=== PATIENT | male | born 1980 | race Caucasian/White ===

== ENCOUNTER 2018-11-14 12:13 | Day surgery (SDC) | payer MEDICAID ==
[2018-11-10 15:38] LABS: BASOPHILS % (AUTO) 0.4 % (0-1); EOSINOPHILS # (AUTO) 0.1 X10'3 (0-0.9); EOSINOPHILS % (AUTO) 0.6 % (0-6); LYMPHOCYTES # (AUTO) 1.8 X10'3 (1.1-4.8); LYMPHOCYTES % (AUTO) 19.3 % (21-51); MEAN CORPUSCULAR HGB CONC 34.3 g/dL (33.0-36.5); MEAN CORPUSCULAR VOLUME 96.1 FL (78-98); MEAN PLATELET VOLUME 8.3 FL (7.4-10.4); MONOCYTES # (AUTO) 0.7 X10'3 (0-0.9); MONOCYTES % (AUTO) 7.6 % (2-12); NEUTROPHILS # (AUTO) 6.9 X10'3 (1.8-7.7); NEUTROPHILS % (AUTO) 72.1 % (42-75); PRE OP HEMATOCRIT 43.6 % (42.0-52.0); PRE OP HEMOGLOBIN 14.9 g/dL (14.0-17.9); PRE OP PLATELET COUNT 239 X10'3 (140-440); RED BLOOD COUNT 4.53 X10'6 (4.70-6.10)
[2018-11-10 15:58] LABS: ALBUMIN 3.8 G/DL (3.4-5.0); ALBUMIN/GLOBULIN RATIO 0.9 (1.1-1.5); ALKALINE PHOSPHATASE 64 IU/L (46-116); BLOOD UREA NITROGEN 16 MG/DL (7-18); BUN/CREATININE RATIO 14.4 (5.4-32.0); CALCIUM 9.4 MG/DL (8.5-10.1); CHLORIDE 104 MMOL/L (99-107); CREATININE 1.11 MG/DL (0.60-1.10); PRE OP ALT 29 U/L (30-65); PRE OP ANION GAP 6 (8-16); PRE OP AST 20 U/L (10-37); PRE OP BILIRUB, TOTAL 0.3 MG/DL (0.0-1.0); PRE OP GLUCOSE 88 MG/DL (70-104); PRE OP SODIUM 141 MMOL/L (135-145); TOTAL CARBON DIOXIDE 30.9 MMOL/L (24-32); TOTAL PROTEIN 8.1 G/DL (6.4-8.2); eGFR 74 ML/MIN
[~2018-11-14] VITALS: Ht 182.9 cm; Wt 98.7 kg
[~2018-11-14 12:13] MED LIST: BUPIVAcaine/PF 2.5mg/ml (0.25%) 10ml vial ONE; CALC500T11 PO; CYCL-1 PO; IBUP-1986 PO; OXYC-658; VARE1TAB22 PO; cefazolin/dext.iso 2gm/100 ML IV ONE; famotidine 20mg tablet PO ONE; ringers solution, lacted 1,000 ML IV SCH
[2018-11-14 12:20] VITALS: BP 118/67
[2018-11-14] MEDS ORDERED: ringers solution, lacted 1,000 ML IV SCH (13:34)
[2018-11-14] MEDS ORDERED: ondansetron/PF 4mg/2ml inj IV PRN (13:35)
[2018-11-14] MEDS ORDERED: morphine 4 MG/ML inj SYRINge IV PRN ×2 (13:35)
[2018-11-14] MEDS ORDERED: proCHLORperazine 10 MG/2 ml inj IV PRN (13:35)
[2018-11-14] MEDS ORDERED: meperidine/PF 25mg/ml syringe IV PRN ×3 (13:35)
[2018-11-14] MEDS ORDERED: LIDOcaine 0.5% (5mg/ml) 50ml vial ONE (13:36)
[2018-11-14] MEDS ORDERED: ketamine 50mg/5ml syringe ONE (13:39)
[2018-11-14] MEDS ORDERED: fentaNYL /PF 50mcg/ml 5ml ampule ONE (13:39)
[2018-11-14] MEDS ORDERED: midazolam 2 mg/2 ml injection ONE (13:39)
[2018-11-14] MEDS ORDERED: propofol inj 20 ML IV ONE (14:15)
[2018-11-14] MEDS ORDERED: LIDOcaine 1%/PF 5ML 10 MG/ML VIAL ONE (14:15)
[2018-11-14] MEDS ORDERED: diphenhydrAMINE 50 mg/ml inj ONE (14:15)
[2018-11-14 14:43] VITALS: BP 125/84
--- NOTE | 2018-11-14 14:43 | NUR ---
Received from OR via , accompanied by Anesthesiologist DR PORTILLO and report given by Anesthesiolgist. AWAKE AND OENISE DISCOMFORT. VITALS STABLE. DRESSING DI. FINGERS WARM AND PINK.
[2018-11-14 14:53] VITALS: BP 123/82
[2018-11-14 15:03] VITALS: BP 132/88
--- NOTE | 2018-11-14 15:13 | NUR ---
AWAKE AND ORIENTED. VITALS STABLE. DRESSING DI. RYLEY PAIN. HOME WITH HIS AT THIS TIME.
== END 2018-11-14 15:13 | disposition home or self-care (01) ==
LOC: PAS 12:13
PROVIDERS: ATTEND Orthopaedic Surgery Hand Surgery
DX: L90.5 Scar conditions and fibrosis of skin (principal); T81.89XA Other complications of procedures, not elsewhere classified, initial encounter; F17.210 Nicotine dependence, cigarettes, uncomplicated; F12.90 Cannabis use, unspecified, uncomplicated; K21.9 Gastro-esophageal reflux disease without esophagitis; Z72.89 Other problems related to lifestyle; Z79.899 Other long term (current) drug therapy; Z98.890 Other specified postprocedural states; Y83.8 Other surgical procedures as the cause of abnormal reaction of the patient, or of later complication, without mention of misadventure at the time of the procedure; Y92.89 Other specified places as the place of occurrence of the external cause
CPT/HCPCS: 13160; 36415; 80053; 85025; 93005; A6222; J1200; J2001; J2250; J2704; J3010; J3490; J7120; A4618; A7000